=== PATIENT | male | born 2000 | race Caucasian/White ===

== ENCOUNTER 2020-08-15 15:20 | Emergency (ER) | payer OTHER ==
[2020-08-15] MEDS ORDERED: ONDANSETRON 4 MG TAB.RAPDIS PO ONE (17:10)
--- NOTE | 2020-08-15 17:12 | ER Document Report ---
ED Medical Screen (RME) - General Stated Complaint: NAUSEA, ABDOMINAL PAIN Time Seen by Provider: 08/15/20 17:09 Notes: HPI: 19-year-old male otherwise healthy presenting with intermittent upper abdominal pain that feels like a sharp tightening of the abdomen with sign ificant nausea over the last 4 days. No fever. Has been moving his bowels. No history of anything similar although he does have reflux PHYSICAL EXAMINATION: Mild tenderness to the epigastric region on palpation. No lower abdominal pain on palpation. I checked a radial pulse on the patient as he was moderately tachycardic initially states he was very anxious and his radial pulse is 92 I have greeted and performed a rapid initial assessment of this patient. A comprehensive ED assessment and evaluation of the patient, analysis of test results and completion of medical decision making process will be conducted by an additional ED providers. Please note that clinical decision making for this patient was made during the 2019 pandemic of novel coronavirus which caused a significant strain on the healthcare system including at this particular facility. Criteria for admission discharge and level of care decisions as well as treatment decisions have necessarily changed Physical Exam - Vital signs Vitals: Temp Pulse Resp BP Pulse Ox 98.6 F 132 H 16 131/95 H 98 08/15/20 15:33 08/15/20 15:33 08/15/20 15:33 08/15/20 15:33 08/15/20 15:33 Course - Vital Signs Vital signs: Temp Pulse Resp BP Pulse Ox 98.6 F 132 H 16 131/95 H 98 08/15/20 15:33 08/15/20 15:33 08/15/20 15:33 08/15/20 15:33 08/15/20 15:33
[2020-08-15 17:55] LABS: ABSOLUTE LYMPHOCYTES (AUTO) 1.2 10^3/uL (0.5-4.7); ABSOLUTE MONOCYTES (AUTO) 0.5 10^3/uL (0.1-1.4); ABSOLUTE NEUT (AUTO) 9.6 10^3/uL (1.7-8.2); BASOPHILS % (AUTO) 0.4 % (0-2); HEMATOCRIT 49.1 % (37.9-51.0); HEMOGLOBIN 17.6 g/dL (13.5-17.0); LYMPHOCYTES % (AUTO) 10.7 % (13-45); MEAN CORPUSCULAR HEMOGLOBIN 30.7 pg (27.0-33.4); MEAN CORPUSCULAR HGB CONC 35.7 g/dL (32.0-36.0); MEAN CORPUSCULAR VOLUME 86 fl (80-97); MONOCYTES % (AUTO) 4.3 % (3-13); PLATELET COUNT 255 10^3/uL (150-450); RED BLOOD COUNT 5.72 10^6/uL (4.35-5.55); RED CELL DISTRIBUTION WIDTH 12.4 % (11.5-14.0); SEGMENTED NEUTROPHILS % (AUTO) 84.6 % (42-78); TOTAL CELLS COUNTED % (AUTO) 100 %; WHITE BLOOD COUNT 11.4 10^3/uL (4.0-10.5)
[2020-08-15 17:56] LABS: APPEARANCE,URINE CLEAR; BILIRUBIN,URINE NEGATIVE (NEGATIVE); COLOR,URINE STRAW; GLUCOSE, URINE NEGATIVE (NEGATIVE); KETONES,URINE 20 mg/dL (NEGATIVE); LEUKOCYTE ESTERASE,URINE NEGATIVE (NEGATIVE); NITRITE,URINE NEGATIVE (NEGATIVE); PROTEIN,URINE NEGATIVE (NEGATIVE); URINE SPECIFIC GRAVITY 1.008; UROBILINOGEN,URINE NEGATIVE mg/dL (<2.0)
[2020-08-15 18:09] LABS: ALBUMIN 5.9 g/dL (3.5-5.0); ALKALINE PHOSPHATASE 77 U/L (38-126); ANION GAP 15 (5-19); ASPARTATE AMINO TRANSFERASE 27 U/L (17-59); BILIRUBIN,DIRECT 0.2 mg/dL (0.0-0.4); BILIRUBIN,TOTAL 1.4 mg/dL (0.2-1.3); BLOOD UREA NITROGEN 10 mg/dL (7-20); CALCIUM 11.1 mg/dL (8.4-10.2); CARBON DIOXIDE 25 mmol/L (22-30); CHLORIDE 102 mmol/L (98-107); GLUCOSE 97 mg/dL (75-110); TOTAL PROTEIN 9.4 g/dL (6.3-8.2)
--- NOTE | 2020-08-15 19:37 | ER Document Report ---
ED General - General Stated Complaint: NAUSEA, ABDOMINAL PAIN Time Seen by Provider: 08/15/20 17:09 Primary Care Provider: KATH ANDERSON MD [ACTIVE STAFF] - Follow up as needed - HPI Notes: 19-year-old male presents with epigastric pain. Patient states that for the past 2 days he has had epigastric pain described as a sharp and tight sensation, "comes like a tax", cramping, "pushed in" sensation, "the opposite of bloating". Patient has had nausea, no vomiting or diarrhea. He reports a history of reflux, he is currently on a PPI. Patient states that he was being worked up for irritable bowel syndrome, he states that it was actually planned to have an endoscopy however due to Covid that was canceled last year. He has not called his GI doctor to follow-up with him since. He reports that his mother has bowel issues, however to his knowledge there is no family history of Crohn's disease or ulcerative colitis. - Related Data Allergies/Adverse Reactions: No Known Allergies Allergy (Unverified 08/15/20 19:57) Past Medical History - General Information source: Patient - Social History Smoking Status: Unknown if Ever Smoked Family History: Other - Irritable bowel Review of Systems - Review of Systems Constitutional: denies: Fever EENT: No symptoms reported Cardiovascular: No symptoms reported Respiratory: No symptoms reported Gastrointestinal: See HPI Genitourinary: No symptoms reported Male Genitourinary: No symptoms reported Musculoskeletal: No symptoms reported Skin: No symptoms reported Hematologic/Lymphatic: No symptoms reported Neurological/Psychological: No symptoms reported Physical Exam - Vital signs Vitals: Temp Pulse Resp BP Pulse Ox 98.6 F 132 H 16 131/95 H 98 08/15/20 15:33 08/15/20 15:33 08/15/20 15:33 08/15/20 15:33 08/15/20 15:33 - General General appearance: Appears well, Alert In distress: None - HEENT Head: Normocephalic, Atraumatic Extraocular movements intact: Yes Pupils: PERRL - Respiratory Breath sounds: Normal - Cardiovascular Rhythm: Regular Heart sounds: Normal auscultation - Abdominal Distension: No distension Bowel sounds: Normal Tenderness: Nontender - Extremities General upper extremity: Normal ROM General lower extremity: Normal ROM - Neurological Neuro grossly intact: Yes Cognition: Normal Orientation: AAOx4 - Psychological Associated symptoms: Normal affect - Skin Skin Temperature: Warm Course - Re-evaluation Re-evalutation: 19-year-old male with epigastric pain and nausea for the past few days, history of GERD and possible irritable bowel. On exam patient is very thin, alert, nontoxic-appearing, afebrile. Tachycardia that he had at triage has now resolved. There is no focal abdominal tenderness, it is overall nonperitoneal. I suspect that his symptoms are related to GERD versus gastritis versus possible ulcer formation. A CT was ordered from triage and he has already drank the dye. Labs from triage have resulted. Slight leukocytosis 11.4. Slight hypercalcemia, electrolytes otherwise within normal limits. Creatinine within normal limits. No elevation of LFTs or lipase. 08/15/20 21:11 CT is negative for acute finding per radiology. Updated patient on results. Have ordered a dose of Carafate and plan to discharge him with this. Patient reports he is a previous patient of Dr. Anderson. I encouraged him to please call the office this week to reestablish and follow-up with the planned endoscopy from last year. Return precautions given, stable at time of discharge. - Vital Signs Vital signs: Temp Pulse Resp BP Pulse Ox 98.8 F 83 14 126/79 H 100 08/15/20 21:34 08/15/20 21:34 08/15/20 21:34 08/15/20 21:34 08/15/20 21:34 - Laboratory Results Result Diagrams: 08/15/20 17:29 08/15/20 17:29 Laboratory Results Interpreted: 08/15/20 08/15/20 08/15/20 17:29 17:29 17:29 WBC 11.4 H RBC 5.72 H Hgb 17.6 H Lymph % (Auto) 10.7 L Absolute Neuts (auto) 9.6 H Seg Neutrophils % 84.6 H Calcium 11.1 H Total Bilirubin 1.4 H Total Protein 9.4 H Albumin 5.9 H Urine Ketones 20 H Critical Laboratory Results Reviewed: No Critical Results - Radiology Results Critical Radiology Results Reviewed: No Critical Results Discharge - Discharge Clinical Impression: Epigastric pain Disposition: HOME, SELF-CARE Additional Instructions: Please call Dr. Anderson's office to discuss reestablishing care. Continue your PPI daily, may also add on Carafate which you can take 4 times a day. Return to the emergency department for any concerning worsening symptoms. Prescriptions: Sucralfate [Carafate 1 gm Tablet] 1 gm PO QID #120 tablet Referrals: KATH ANDESRON MD [ACTIVE STAFF] - Follow up as needed
[2020-08-15] MEDS ORDERED: FAMOTIDINE INJ/PF 20 MG/2 ML SDV IV ONE (20:09)
--- NOTE | 2020-08-15 20:43 | RADIOLOGY REPORT (SQ) ---
EXAM DESCRIPTION: Site: CT ABD/PELVIS WITH IV ORAL RP: CT ABDOMEN PELVIS WITH IV CONTRAST CLINICAL HISTORY: 19 years Male; upper abd pain; TECHNIQUE: CT of the abdomen and pelvis using intravenous contrast. All CT scans at this facility use dose modulation, iterative reconstruction, and/or weight based dosing when appropriate to reduce radiation dose to as low as reasonably achievable. COMPARISON: None. FINDINGS: Abdomen: Stomach: No significant distention or surrounding edema. Liver:No focal lesions. No intrahepatic ductal distention. Gallbladder:Nondistended Pancreas:Within normal limits Spleen:Within normal limits Right kidney:No hydronephrosis. No focal lesion. Left kidney:No hydronephrosis. No focal lesion. Adrenal glands:Within normal limits Vascular structures:Within normal limits Pelvis: Small bowel:No significant distention. Appendix:Within normal limits Colon:No distention or acute pericolonic edema. Oral contrast material is seen from the stomach to the distal colon, without evidence for obstruction. No free intraperitoneal fluid or air. Bones: No acute bone findings. Bladder: Unremarkable. No pelvic mass or adenopathy. IMPRESSION: 1. Normal CT of the abdomen and pelvis with contrast.
[2020-08-15] MEDS ORDERED: SUCRALFATE 1 GM TABLET PO ONE (20:48)
[2020-08-15 21:36] VITALS: BP 126/79
== END 2020-08-15 21:37 | disposition home or self-care (01) ==
LOC: ER 15:20
DX: R10.13 Epigastric pain (principal); K21.9 Gastro-esophageal reflux disease without esophagitis; E83.52 Hypercalcemia; Z79.899 Other long term (current) drug therapy; Z83.79 Family history of other diseases of the digestive system
CPT/HCPCS: 99285; 96374; 36415; 83690; 85025; 80053; 81001; 74177; S0119; S0028